=== PATIENT | female | born 1975 | race Caucasian/White ===

== ENCOUNTER 2017-09-14 21:45 | Emergency (ER) | payer BC ==
[2017-09-14] MEDS ORDERED: NIVEA192 GM TP (22:14)
[2017-09-14 23:38] VITALS: BP 100/62
== END 2017-09-14 23:38 | disposition home or self-care (01) ==
LOC: ED 21:45
DX: L30.1 Dyshidrosis [pompholyx] (principal); F17.200 Nicotine dependence, unspecified, uncomplicated; Z88.2 Allergy status to sulfonamides; Z88.8 Allergy status to other drugs, medicaments and biological substances; Z88.1 Allergy status to other antibiotic agents; Z91.040 Latex allergy status; G43.909 Migraine, unspecified, not intractable, without status migrainosus

== ENCOUNTER 2019-11-25 19:27 | Emergency (ER) | payer BC ==
[~2019-11-25 19:27] MED LIST: NIVEA192 GM TP
[2019-11-25] MEDS ORDERED: CLONIDINE HYDR0.1 MG PO (19:39)
[2019-11-25] MEDS ORDERED: VERAPAMIL HYDRO80 MG PO (19:39)
[2019-11-25] MEDS ORDERED: NEURONTIN300 MG/CAP PO (19:40)
[2019-11-25 20:36] VITALS: BP 135/101
== END 2019-11-25 20:44 | disposition home or self-care (01) ==
LOC: ED 19:27
DX: M54.5 Low back pain (principal); G43.909 Migraine, unspecified, not intractable, without status migrainosus; F17.210 Nicotine dependence, cigarettes, uncomplicated; Z90.89 Acquired absence of other organs